=== PATIENT | female | born 1990 | race Caucasian/White ===

== ENCOUNTER 2025-04-25 13:20 | Emergency (ER) | payer MEDICAID ==
[~2025-04-25] VITALS: Ht 149.9 cm; Wt 53.0 kg
[2025-04-25 13:32] VITALS: O2SAT 98
[2025-04-25] MEDS: IBUPROFEN 600MG TABLET PO ONE (17:18)
[2025-04-25] MEDS: BACITRACIN ZINC OINT UDPKT TOP ONE (17:20)
[2025-04-25] MEDS ORDERED: BO1 TP (19:36)
[2025-04-25] MEDS ORDERED: IBUP-1455 MT (19:36)
[2025-04-25 20:29] VITALS: BP 124/61; PULSE 80; RESP 14; TEMP 37.1; O2SAT 98
== END 2025-04-25 20:30 | disposition home or self-care (01) ==
LOC: ER 13:20
DX: S92.514A Nondisplaced fracture of proximal phalanx of right lesser toe(s), initial encounter for closed fracture (principal); S60.221A Contusion of right hand, initial encounter; S63.601A Unspecified sprain of right thumb, initial encounter; S80.01XA Contusion of right knee, initial encounter; S80.02XA Contusion of left knee, initial encounter; S83.91XA Sprain of unspecified site of right knee, initial encounter; Z79.899 Other long term (current) drug therapy; W10.9XXA Fall (on) (from) unspecified stairs and steps, initial encounter; Y93.01 Activity, walking, marching and hiking; Y92.89 Other specified places as the place of occurrence of the external cause; Y99.8 Other external cause status
CPT/HCPCS: 73120; 73560; 73630; 99284